=== PATIENT | female | born 1970 | race Caucasian/White ===

== ENCOUNTER 2017-10-08 05:46 | Observation (INO) | payer MEDICARE, OTHER ==
[~2017-10-08] VITALS: Ht 160 cm; Wt 74.1 kg
[~2017-10-08 05:46] MED LIST: GABA600T PO; NAPR500T2 PO; OXYC15TA PO; SERO200T PO; SERO25TA PO; VENL75XR PO; VIST50CA PO; ZANT150T2 PO
[2017-10-08] MEDS ORDERED: POVIDONE IODINE 5% (ANTISEPSIS KIT) 4 APPLICATIONS EACH NARE PRN (06:15)
[2017-10-08] MEDS ORDERED: SUFentanil INJ 250 MCG/5 ML AMP ONE (06:15)
[2017-10-08] MEDS ORDERED: SODIUM CHLORID 0.9% 500 ML IV PRN (06:15)
[2017-10-08] MEDS ORDERED: METOPROLOL TARTRATE 25 MG TAB PO PRN (06:15)
[2017-10-08] MEDS ORDERED: DEXMEDETOMIDINE HCL 200 MCG/2 ML VIAL ONE (06:15)
[2017-10-08] MEDS ORDERED: VANCOMYCIN 1000 MG/NS 250 ML (for <70 kg) IV SCH ×2 (06:15)
[2017-10-08] MEDS ORDERED: LACTATED RINGER'S 1000 ML IV PRN (06:15)
[2017-10-08] MEDS ORDERED: ceFAZolin 2 GM PREMIX 50 ML IV SCH (06:15)
[2017-10-08] MEDS ORDERED: CHLORHEXIDINE GLUCONATE 4% SOLN 120 ML BTL TOPICAL SCH (06:15)
[2017-10-08] MEDS ORDERED: CHLORHEXIDINE GLUCONATE 2 % 1 PACK (2 CLOTHS) TOPICAL PRN (06:15)
[2017-10-08] MEDS ORDERED: PROPOFOL 500 MG/50 ML INJ 100 ML ONE (06:16)
[2017-10-08] MEDS ORDERED: KETAMINE HCL 50 MG/5 ML SYRINGE ONE (06:16)
[2017-10-08] MEDS ORDERED: ACETAMINOPHEN 1000 MG/100 ML 0 ML IV ONE (06:17)
[2017-10-08] MEDS ORDERED: GENTAMICIN SULFATE 80 MG/2 ML VIAL ONE (06:50)
[2017-10-08] MEDS ORDERED: BUPIVACAINE/EPINEPHRINE 0.5% PF 30 ML VIAL ONE (06:50)
[2017-10-08] MEDS ORDERED: ACETAMINOPHEN 1000 MG/100 ML 100 ML IV ONE (09:07)
--- NOTE | 2017-10-08 10:06 | PD.OP ---
cc: Monty Thomson MD; Yonis Thomson MD Operative Report Date of Surgery: Oct 08, 2017 Preoperative Diagnosis: Herniated nucleus pulposus C4-5 central, left, extruded. Status post ACDF C5-6, stable Postoperative Diagnosis: Same Procedure: Anterior cervical discectomy decompression and bilateral foraminotomies, C4-5. Left anterior iliac crest bone graft Anesthesia: General Surgeon: Yonis Thomson Machine Setter Sheet Metal(s): RICHELLE Rocha Operation and Findings: EBL: 25 cc INDICATIONS: This patient is a 46-year-old female with severe left shoulder and arm pain. Investigative studies shows evidence of an extruded disc herniation C4-5 central into the left. She has had a previous ACDF C5-6. She presents for surgical treatment NOTE: Didi Rocha PA-C was present for the entire surgical procedure as my nurse first assist. In my medical opinion her skill and care was necessary for proper management of this patient PROCEDURE: The patient was brought to the operating room and anesthetized in the supine position. This patient was positioned supine on the radiolucent table. All pressure points were protected in the anterior cervical spine and iliac crest was scrubbed with alcohol followed by Hibiclens followed by ChloraPrep. A timeout was done and antibiotics were given within 1 hour time window. Lateral radiographic images were used identifying the proper level. A right anterior incision was made in line with skin creases. The platysma was opened in line with the incision. Deep dissection continued in the interval between the carotid sheath and the esophagus. The longus-coli muscles were lifted on both sides and retractors were positioned allowing good exposure. Lateral radiographic images were used to identify the proper level. [place] style interosseous pins were placed at C4 and C5 allowing exposure to that level. The microscope was rolled into the field. A total discectomy was accomplished and posterior osteophytes were removed. The posterior longitudinal ligament and annulus was taken down. Bilateral foraminotomies were accomplished. The endplates were squared up anticipating later bone grafting. A blunt probe could be placed out each foramen without evidence of nerve root compromise. The left iliac crest was approached. A small stab incision was made allowing percutaneous access to the anterior iliac crest. Multiple cores of cancellous bone were harvested and taken to the back table to be used for later bone grafting. The wound was irrigated anesthetized and closed with 4-0 Vicryl followed by Dermabond. The case was turned over to Dr. Monty Thomson for fusion and instrumentation per his dictation. FINDINGS: There was evidence of a large extruded disc herniation centrally into the left extending below the disc space. Multiple fragments were retrieved. The final decompression was very satisfactory. There was no complication that was appreciated NOTE: This surgery was performed in 2 parts. The first part was the neurosurgical decompression performed under the variable power stereo microscope by the undersigned in addition to the bone graft. The second portion of the surgery will be performed by the orthopedic spine component by co -surgeon, Dr. Monty Thomson for the anterior fusion with interbody cage and anterior plate. The skill of 2 surgeons was necessary to perform distinct separate procedural services as dictated above and dictated in the following operative note by Dr. Monty Thomson. Yonis Thomson MD Oct 08, 2017 10:05
--- NOTE | 2017-10-08 10:53 | HHI.PR ---
Immediate Post Op Note Procedure Date: Oct 08, 2017 Pre Op Diagnosis: C4-5 large HNP,SS,SCC; S/P C5-6 ACDF Post Op Diagnosis: Same Surgeon: Monty Thomson MD Inspecting Engineer(s): Josephine Alonzo PA-C Procedure: C4-5 AIF,ACC,ASI Complications: None Estimated blood loss: 25cc Anesthesia: General Drains: None Patient to: PACU Patient Condition: Good Implant/Devices: SEE IMPLANT LOG (if applicable) Date/Time of Procedure: SEE SURGICAL CARE RECORD Monty Thomson MD Oct 08, 2017 10:53
[2017-10-08] MEDS: LACTATED RINGER'S 1000 ML INJ 1,000 ML IV SCH ×2 (10:56→20:52)
[2017-10-08] MEDS ORDERED: Post-op Orders (for Pharmacy) XX ONE (11:00)
[2017-10-08] MEDS ORDERED: ALUMINUM/MAGNESIUM/SIMETH 30 ML CUP PO PRN (11:00)
[2017-10-08] MEDS ORDERED: NALOXONE HCL 0.4 MG/ML AMP IV PUSH PRN (11:00)
[2017-10-08] MEDS ORDERED: PROMETHAZINE INJ 25 MG/ML VIAL IM PRN (11:00)
[2017-10-08] MEDS ORDERED: DO NOT ADM ANY ANTICOAGULANT DRUGS PRN (11:00)
[2017-10-08] MEDS ORDERED: MORPHINE SULFATE 4 MG/ML INJ IV PUSH PRN (11:00)
[2017-10-08] MEDS ORDERED: ONDANSETRON ODT 4 MG TAB SL PRN (11:00)
[2017-10-08] MEDS ORDERED: MIDAZOLAM HCL 2 MG/2 ML VIAL ONE (11:08)
[2017-10-08] MEDS ORDERED: *MEPERIDINE 25 MG INJ VIAL PERIprocedural Use ONLY ONE (11:20)
[2017-10-08] MEDS ORDERED: *morphine SULFATE 4 MG/ML PERIprocedure ONLY ONE (11:36)
--- NOTE | 2017-10-08 11:43 | MP ---
cc: Monty Thomson MD, F. Robert DO DATE OF OPERATION: 10/08/2017 PREOPERATIVE DIAGNOSES: 1. C4-5 large extruded central left-sided herniated nucleus pulposus. 2. C4-5 spinal stenosis, spinal cord compression. 3. Status post C5-C6 anterior cervical discectomy and fusion in 2011. 4. Cervical spine degenerative disc disease, osteoarthritis. 5. Left-sided cervical radiculitis with left upper extremity weakness. PROCEDURE PERFORMED: C4-C5 anterior interbody fusion; C4-5 Spinet ACC anterior cervical cage; C4-5 Spinet-Rauscher anterior spinal instrumentation. SURGEON: Harry Thomson MD RELATIONS MANAGER: Josephine Alonzo PA-C. ANESTHESIA: General. DRAIN: None. ESTIMATED BLOOD LOSS: 25 mL. COMPLICATIONS: None. PLAN OF ACTIVITY: As per orders. INDICATIONS: Dr. Yonis Thomson and myself were co-surgeons. Dr. Yonis Thomson performed the decompressive portion of the surgical procedure and also performed left anterior iliac crest bone grafting. I performed the above-mentioned surgical procedure as the orthopedic stabilization, fusion and spinal instrumentation. My ophthalmic medical assistant. Josephine Alonzo PA-C, was present entirely for my portion of the surgical case. She was medically necessary for the entire case, because of the complexity of the case and to facilitate the performance of the procedure. The STAFFING ASSISTANT at the back table was not of the skill set for this case to manipulate the instruments, e.g. multiple different types of soft tissue retractors, trial implants, permanent implants, including bone grafting. Dr. Yonis Thomson performed a right transverse anterior cervical spine exposure at C4-C5. Using the operating microscope, he performed a C4-5 anterior cervical discectomy, anterior decompression and foraminotomies. He also performed left anterior iliac crest bone grafting. I was not present for his portion of the procedure. This well described in his operative note. PROCEDURE: The endplate at C4-C5 were prepared for fusion. The hyaline cartilage endplate was removed using angled curettes and burs. A 6, 10 x 12 ACC cage was placed in the interspace. Anterior iliac crest bone grafting was used for interbody fusion under fluoroscopic guidance. The anterior osteophytes were removed using multiple different types of rongeurs and curettes and burs. A 25-mm Spinet Rauscher plate was contoured for the patient's normal cervical lordosis. Two tack pins were used to hold the plate in satisfactory position. The plate was positioned in a manner to avoid the C5 left-sided screw from the previous implant at C5-C6. Two screws were used in the vertebral body of C4 and C5. Each of the screws were drilled and these screws were 14 mm in length, 4.0 mm in outer diameter, fixed angle screws. Each screw head was appropriately locked to the plate. Intraoperative fluoroscopy in AP and lateral plane confirmed satisfactory position of the bone graft at C4-C5, satisfactory position of the ACC cage at C4-5, saturation position of anterior spinal instrumentation at C4-C5. Previous implant and fusion at C5-C6 remain satisfactory. The wound was irrigated with copious amounts of sterile saline antibiotic solution. The wound itself was dry. It was closed in multiple layers using 3-0 Vicryl and the skin approximated with a running subcuticular 4-0 Vicryl. Sterile dressings were applied. The patient was placed in a [place] cervical orthosis. The patient tolerated the procedure well and arrived in the recovery room in stable and satisfactory condition. MD ROJELIO Rivera/YENNI , 10:46 AM , 11:42 AM
[2017-10-08 12:27] VITALS: BP 135/79; PULSE 88; RESP 14; TEMP 98.8; O2SAT 96
[2017-10-08] MEDS: GABAPENTIN 300 MG CAP PO SCH ×2 (12:50→17:35)
--- NOTE | 2017-10-08 15:35 | PD.CONS ---
HPI [facility] Consult Requested By Dr. Thomson Reason for Consult Medical management Primary Care Physician Ramon Vigil D.O. Diagnoses: History of Present Illness This is a 46-year-old female with history of hypothyroidism, anxiety and depression admitted to the hospital by the orthopedic surgeon for surgical treatment for disc herniation for C4-C5 to the left after patient has been complaining of severe left shoulder and arm pain. Patient states that she has a history of anemia and hypothyroidism but they have been controlled. She is not taking anything for hypothyroidism. She takes multiple medications for depression and anxiety. Currently, her pain is controlled with pain medications. She is status post anterior cervical discectomy decompression and bilateral foraminotomies, C4-5. Review of Systems ROS Limitations: Other (All other pertinent systems were reviewed and are negative.) Past Family Social History Allergies: Coded Allergies: No Known Allergies (Unverified , 10/08/17) Past Medical History Anemia Hypothyroidism Anxiety Depression Cervical disc herniation Past Surgical History Anterior discectomy Left toe amputation Left shoulder surgery Left anterior iliac crest bone graft Reported Medications Oxycodone (Oxycodone HCl) 15 Mg Tab 15 Mg PO Q6H PRN Vistaril (Hydroxyzine Pamoate) 50 Mg Cap 50 Mg PO QID PRN Naproxen 500 Mg Tab 500 Mg PO BID PRN Zantac (Ranitidine HCl) 150 Mg Tab 150 Mg PO BID Gabapentin 600 Mg Tab 600 Mg PO TID Effexor XR 24 HR (Venlafaxine HCl) 75 Mg Cap 75 Mg PO DAILY Seroquel (Quetiapine Fumarate) 200 Mg Tab 200 Mg PO HS Seroquel (Quetiapine Fumarate) 25 Mg Tab 25 Mg PO DAILY Family History Noncontributory Social History Drinks socially Smokes about half a pack a day for the last 10 years. Physical Exam Vital Signs Vital Signs Date Time Temp Pulse Resp B/P (MAP) Pulse Ox O2 Delivery O2 Flow Rate FiO2 10/08/17 12:27 98.8 88 14 135/79 (97) 96 10/08/17 11:44 98.0 97 18 136/90 (105) 99 Nasal Cannula 2 10/08/17 11:30 97 18 136/90 (105) 99 Nasal Cannula 2 10/08/17 11:15 95 18 142/93 (109) 99 Nasal Cannula 2 6/7/18 10:59 98.0 98 18 144/98 (113) 100 Nasal Cannula 2 10/08/17 06:37 98.1 72 16 109/72 (84) 96 Physical Exam Not in distress PERRL, pink conjunctiva without injection, anicteric Cervical collar in place, surgical suture dressings in place. Normal rate and regular rhythm, no murmurs gallops or rubs appreciated. Clear to auscultation and symmetric bilaterally, normal respiratory effort. Normal bowel sounds, soft, non-tender, nondistended, no guarding. Extremities without clubbing, cyanosis, or edema. AAO x3, no cranial nerve deficits, moves all 4 extremities Assessment and Plan Assessment and Plan This is a 46-year-old female with history of anemia, hypothyroidism, anxiety and depression admitted for anterior discectomy. Cervical disc herniation-per attending physician, anterior cervical discectomy decompression and bilateral foraminotomies, C4-5. Pain control and bowel regimen per attending. Hypothyroidism-not on any thyroid pill, has been controlled per patient, check TSH, free T3 and free T4. If TSH is not very bad, will follow up with primary care physician as outpatient History of anemia-check CBC and BMP Anxiety, depression-agree with continuing Effexor, Seroquel. DVT prophylaxis: Per attending physician. Thank you very much for this consultation, if CBC, BMP, and thyroid function tests are within normal limits, we will sign off. Danelle Carbajal MD Oct 08, 2017 15:35
--- NOTE | 2017-10-08 16:59 | RADRPT ---
EXAM DATE: 10/08/2017 4:19 PM EDT AGE/SEX: 46 years / Female INDICATIONS: Fusion C4,C5 with screws and plate placement. CLINICAL DATA: This is the patient's initial encounter. Patient reports that signs and symptoms have been present for 1 day and indicates a pain score of Nonresponsive. MEDICAL/SURGICAL HISTORY: None. Fusion, cervical. COMPARISON: No prior exams available for comparison. FINDINGS: Intraoperative examination demonstrates anterior fusion at C4-5 and C5-6 with excellent anatomical al ignment. CONCLUSION: Intact postsurgical changes. Electronically signed by: Fani Boyce MD 10/08/2017 4:58 PM EDT
[2017-10-08 17:08] VITALS: BP 142/74; PULSE 74; RESP 16; TEMP 98.4; O2SAT 95
[2017-10-08 17:15] LABS: BASOPHIL % 0.3 % (0.0-2.0); EOSINOPHIL % 0.1 % (0.0-4.0); HEMATOCRIT 29.3 % (35.0-46.0); HEMOGLOBIN 9.8 GM/DL (11.6-15.3); LYMPH % 6.4 % (9.0-44.0); LYMPHOCYTE # 0.7 TH/MM3 (1.0-4.8); MEAN CELL VOLUME 96.2 FL (80.0-100.0); MEAN CORPUSCULAR HEMOGLOBIN 32.1 PG (27.0-34.0); MEAN CORPUSCULAR HGB CONC 33.4 % (32.0-36.0); MEAN PLATELET VOLUME 8.2 FL (7.0-11.0); MONO % 4.2 % (0.0-8.0); MONOCYTE # 0.5 TH/MM3 (0-0.9); PLATELET COUNT 239 TH/MM3 (150-450); RED BLOOD COUNT 3.04 MIL/MM3 (4.00-5.30); RED CELL DISTRIBUTION WIDTH 14.7 % (11.6-17.2); WHITE BLOOD COUNT 11.3 TH/MM3 (4.0-11.0)
[2017-10-08 17:38] LABS: BICARBONATE 27.8 MEQ/L (21.0-32.0); CALCIUM 8.7 MG/DL (8.5-10.1); CREATININE 0.98 MG/DL (0.50-1.00)
[2017-10-08 17:50] LABS: FREE T3 2.36 PG/ML (2.18-3.98)
[2017-10-08 19:50] VITALS: BP 135/92; PULSE 87; RESP 18; TEMP 98.8; O2SAT 98
[2017-10-08] MEDS: FAMOTIDINE 20 MG TAB PO SCH (20:50)
[2017-10-08] MEDS ORDERED: QUEtiapine FUMARATE 200 MG TAB PO SCH (21:00)
[2017-10-08 23:40] VITALS: BP 119/79; PULSE 89; RESP 18; TEMP 98.2; O2SAT 94
[2017-10-09 03:00] VITALS: BP 134/98; PULSE 84; RESP 18; TEMP 98.3; O2SAT 97
--- NOTE | 2017-10-09 07:21 | PD.ORT.PN ---
Subjective Subjective Remarks pt states her arm pain is much improved does have sore throat no complaints of SOB, chest pain Objective Vitals Vital Signs Date Time Temp Pulse Resp B/P (MAP) Pulse Ox O2 Delivery O2 Flow Rate FiO2 10/09/17 03:00 98.3 84 18 134/98 (110) 97 10/09/17 00:38 17 10/08/17 23:40 98.2 89 18 119/79 (92) 94 10/08/17 23:25 Room Air 10/08/17 19:50 98.8 87 18 135/92 (106) 98 10/08/17 17:08 98.4 74 16 142/74 (96) 95 10/08/17 15:32 10/08/17 12:27 98.8 88 14 135/79 (97) 96 10/08/17 11:44 98.0 97 18 136/90 (105) 99 Nasal Cannula 2 10/08/17 11:30 97 18 136/90 (105) 99 Nasal Cannula 2 10/08/17 11:15 95 18 142/93 (109) 99 Nasal Cannula 2 10/08/17 10:59 98.0 98 18 144/98 (113) 100 Nasal Cannula 2 I/O 10/08/17 10/08/17 10/08/17 10/09/17 10/09/17 10/09/17 07:00 15:00 23:00 07:00 15:00 23:00 Intake Total 2200 ml 200 ml 820 ml Output Total 25 ml Balance 2175 ml 200 ml 820 ml Intake Oral 720 ml IV Total 2200 ml 200 ml 100 ml Output Estimated Blood Loss 25 ml # Voids 5 # Bowel Movements 0 Result Diagram: 10/08/17 1607 10/08/17 1607 Objective Remarks [place] collar in place Dressing dry Motor is +5/5 to UE Assessment & Plan Assessment and Plan POD # 1 s/p C4-5 ACDF [place] collar x 4 weeks counseled on discontinuing her naproxen, no NSAIDS due to fusion pt was on Roxycodone 15 mg pre-op, she has pain medications at home from pain management, we are not prescribing any meds upon discharge discharge home today, orthopedically stable Josephine Alonzo Oct 09, 2017 07:21
[2017-10-09 08:00] VITALS: BP 133/81; PULSE 87; RESP 16; TEMP 98.4; O2SAT 95
[2017-10-09] MEDS ORDERED: VENLAFAXINE HCL XR 75 MG CAP PO SCH (09:00)
[2017-10-09] MEDS ORDERED: MULTIVITAMINS/MINERALS THERAPEUTIC TAB PO SCH (09:00)
[2017-10-09] MEDS ORDERED: QUEtiapine FUMARATE 25 MG TAB PO SCH (09:00)
[2017-10-09] MEDS: FAMOTIDINE 20 MG TAB PO SCH (09:32)
[2017-10-09] MEDS: GABAPENTIN 300 MG CAP PO SCH ×2 (09:33→14:08)
--- NOTE | 2017-10-09 10:30 | HHI.PR ---
Subjective Remarks Doing well postop. Pain is controlled. Patient has been cleared for discharge from a surgical standpoint. Medically clear and stable for discharge home today. Objective Vital Signs Date Time Temp Pulse Resp B/P (MAP) Pulse Ox O2 Delivery O2 Flow Rate FiO2 10/09/17 09:07 18 10/09/17 08:00 98.4 87 16 133/81 (98) 95 10/09/17 03:00 98.3 84 18 134/98 (110) 97 10/08/17 23:40 98.2 89 18 119/79 (92) 94 10/08/17 23:25 Room Air 10/08/17 19:50 98.8 87 18 135/92 (106) 98 10/08/17 17:08 98.4 74 16 142/74 (96) 95 10/08/17 15:32 10/08/17 12:27 98.8 88 14 135/79 (97) 96 10/08/17 11:44 98.0 97 18 136/90 (105) 99 Nasal Cannula 2 10/08/17 11:30 97 18 136/90 (105) 99 Nasal Cannula 2 10/08/17 11:15 95 18 142/93 (109) 99 Nasal Cannula 2 10/08/17 10:59 98.0 98 18 144/98 (113) 100 Nasal Cannula 2 I/O 10/08/17 10/08/17 10/08/17 10/09/17 10/09/17 10/09/17 07:00 15:00 23:00 07:00 15:00 23:00 Intake Total 2200 ml 200 ml 820 ml 100 ml Output Total 25 ml Balance 2175 ml 200 ml 820 ml 100 ml Intake Oral 720 ml IV Total 2200 ml 200 ml 100 ml 100 ml Output Estimated Blood Loss 25 ml # Voids 5 # Bowel Movements 0 Result Diagram: 10/08/17 1607 10/08/17 1607 Objective Remarks GENERAL: NAD, A&Ox3 HEAD: Normocephalic. NECK: Supple, trachea midline. No lymphadenopathy. Neck is in a brace. EYES: No scleral icterus. No injection or drainage. CARDIOVASCULAR: Regular rate and rhythm without murmurs, gallops, or rubs. RESPIRATORY: Breath sounds equal bilaterally. No accessory muscle use. GASTROINTESTINAL: Abdomen soft, non-tender, nondistended. MUSCULOSKELETAL: No cyanosis, or edema. SKIN: Warm and dry. Wound over upper left pelvis from bone graft. NEURO: No focal neurological deficitis. A/P Assessment and Plan 46-year-old female admitted for an ACDF procedure. Anemia Hypothyroidism Anxiety Depression Follows an outpatient Cervical disc herniation s/p ACDF Follow with surgery as an outpatient Discharge planning Medically clear and stable for discharge home today. Elvin Acosta MD Oct 09, 2017 10:30
[2017-10-09] MEDS: LACTATED RINGER'S 1000 ML INJ 1,000 ML IV SCH (11:56)
[2017-10-09 12:00] VITALS: BP 147/85; PULSE 81; RESP 16; TEMP 98.1; O2SAT 97
[2017-10-09 14:19] VITALS: O2SAT 97
== END 2017-10-09 17:21 | disposition home or self-care (01) ==
LOC: HSDC 05:46 → EDSTATUS 07:30 → HSDI 11:01 → N06B 12:04
PROVIDERS: ADMIT Orthopaedic Surgery Orthopaedic Surgery of the Spine; ATTEND Orthopaedic Surgery Orthopaedic Surgery of the Spine
DX: M50.121 Cervical disc disorder at C4-C5 level with radiculopathy (principal); M48.02 Spinal stenosis, cervical region; D64.9 Anemia, unspecified; J02.9 Acute pharyngitis, unspecified; E03.9 Hypothyroidism, unspecified; F32.9 Major depressive disorder, single episode, unspecified; F41.9 Anxiety disorder, unspecified; F17.200 Nicotine dependence, unspecified, uncomplicated; Z79.899 Other long term (current) drug therapy
CPT/HCPCS: 00600; 20937; 22551; 22845; 72040; 76000; 80048; 84439; 84443; 84481; 85025; 94150; 96365; 96366; C1713; G0378; J0131; J0690; J1580; J2175; J2250; J2270; J3010; J3370; J7050; J7120